=== PATIENT | male | born 1995 | race Caucasian/White ===

== ENCOUNTER 2017-02-05 18:20 | Emergency (ER) | payer OTHER ==
[~2017-02-05] VITALS: Ht 188 cm; Wt 77.1 kg
[2017-02-05 18:29] VITALS: BP 117/68
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
[2017-02-05] MEDS ORDERED: IBUPROFEN600 MG ORAL (18:53)
[2017-02-05] MEDS ORDERED: CYCLOBENZAPRINE10 MG ORAL (18:53)
[2017-02-05 19:20] VITALS: BP 117/68
== END 2017-02-05 19:24 | disposition home or self-care (01) ==
LOC: EMR 18:40
DX: S16.1XXA Strain of muscle, fascia and tendon at neck level, initial encounter (principal); V43.62XA Car passenger injured in collision with other type car in traffic accident, initial encounter; Y92.410 Unspecified street and highway as the place of occurrence of the external cause
CPT/HCPCS: 99282